=== PATIENT | male | born 1960 | race Caucasian/White ===

== ENCOUNTER 2018-06-26 14:40 | Inpatient (IN) | payer BC ==
[~2018-06-26] VITALS: Ht 165.1 cm; Wt 79.3 kg
[2018-06-26 15:39] LABS: BASOPHIL % 0.5 % (0-2); PLATELET COUNT 269 x10^3mcL (130-400); RED CELL DISTRIBUTION WIDTH 13.7 % (11.5-14.5)
[2018-06-26 15:46] LABS: CALCIUM 8.2 mg/dL (8.5-10.1); CARBON DIOXIDE 27.8 mmol/L (21-32); CHLORIDE SERUM 104 mmol/L (98-107); CREATININE SERUM 1.3 mg/dL (0.7-1.3); GFR1 > 60 mL/min; GLUCOSE SERUM 107 mg/dL (74-106); POTASSIUM SERUM 3.6 mmol/L (3.5-5.1); SODIUM SERUM 140 mmol/L (136-145)
[2018-06-26 15:52] LABS: ALBUMIN 3.8 g/dL (3.4-5.0); ALKALINE PHOSPHATASE 81 U/L (46-116); ALT/SGPT 42 U/L (16-63); AST/SGOT 27 U/L (15-37); BILIRUBIN TOTAL 0.5 mg/dL (0.20-1.00); TOTAL PROTEIN, SERUM 7.8 g/dL (6.4-8.2)
[2018-06-26 17:04] LABS: T3 TOTAL 1.01 ng/mL
[2018-06-26 17:10] VITALS: BP 142/78
[2018-06-26 17:11] LABS: CHOLESTEROL/HDL RATIO 3.5; PHOSPHOROUS 3.2 mg/dL (2.5-4.9)
[2018-06-26 17:24] LABS: FREE T4 0.78 ng/dL (0.76-1.46); T4(THYROXINE) 5.7 ug/dL (4.7-13.3)
[2018-06-26 21:00] VITALS: BP 136/88
[2018-06-26 23:00] VITALS: BP 134/79
[2018-06-27 03:20] VITALS: BP 116/59
[2018-06-27 06:05] LABS: BASOPHIL % 0.7 % (0-2); PLATELET COUNT 243 x10^3mcL (130-400); RED CELL DISTRIBUTION WIDTH 13.1 % (11.5-14.5)
[2018-06-27 06:38] LABS: ALBUMIN 3.4 g/dL (3.4-5.0); ALKALINE PHOSPHATASE 75 U/L (46-116); ALT/SGPT 37 U/L (16-63); AST/SGOT 26 U/L (15-37); BILIRUBIN DIRECT 0.15 mg/dL (0.0-0.2); BILIRUBIN TOTAL 0.7 mg/dL (0.20-1.00); CALCIUM 8.3 mg/dL (8.5-10.1); CARBON DIOXIDE 27.1 mmol/L (21-32); CHLORIDE SERUM 104 mmol/L (98-107); GFR1 > 60 mL/min; GLUCOSE SERUM 103 mg/dL (74-106); POTASSIUM SERUM 4.4 mmol/L (3.5-5.1); SODIUM SERUM 136 mmol/L (136-145); TOTAL PROTEIN, SERUM 7.2 g/dL (6.4-8.2)
[2018-06-27 07:45] VITALS: BP 125/73
[2018-06-27 09:05] VITALS: Ht 165.1 cm; Wt 79.3 kg
[2018-06-27 16:00] VITALS: BP 126/84
[2018-06-27 19:29] VITALS: BP 137/66
[2018-06-27 19:30] VITALS: BP 137/66
== END 2018-06-27 20:15 | disposition short-term general hospital (02) | DRG 206 ==
LOC: ED 14:40 → DU 16:19 → IC 21:02
PROVIDERS: Emergency Medicine; Internal Medicine
DX: M94.0 Chondrocostal junction syndrome [Tietze] (principal); I24.8 Other forms of acute ischemic heart disease; K21.9 Gastro-esophageal reflux disease without esophagitis; R00.1 Bradycardia, unspecified; R73.03 Prediabetes; G90.8 Other disorders of autonomic nervous system
CPT/HCPCS: 82962; 83880; 84439; J0461; J1644; J2060; J2405; Q0092